=== PATIENT | female | born 1965 | race Caucasian/White ===

== ENCOUNTER 2017-05-29 06:21 | Day surgery (SDC) | payer OTHER ==
[2017-05-29] MEDS ORDERED: Lactated Ringers 1,000 ML IV SCH (07:00)
[2017-05-29] MEDS ORDERED: DIPRIVAN 200 MG/20 ML IV ONE (08:00)
[2017-05-29] MEDS ORDERED: Versed 2 MG/2 ML Injection IV ONE (08:00)
--- NOTE | 2017-05-29 08:56 | OP ---
SURGERY DATE/TIME: 05/29/2017 0800 PREOPERATIVE DIAGNOSES: 1) Persistent gastroesophageal reflux disease. 2) Screening colonoscopy. POSTOPERATIVE DIAGNOSES: 1) Normal EGD. 2) Sigmoid colon polyp. PROCEDURES: 1) EGD. 2) Colonoscopy. SURGEON: Trey Manuel M.D. ANESTHESIA: MAC by Durga Ruiz CRNA. ESTIMATED BLOOD LOSS: Minimal. SPECIMENS: One hot forceps polypectomy. DESCRIPTION OF PROCEDURE: After informed written consent was obtained, the patient was taken to the endoscopy suite. She underwent monitored anesthesia after a bite block was inserted. The endoscope and inserted into the posterior oropharynx and under direct visualization the esophagus was traversed. The esophageal mucosa was normal in appearance free of any lesions or defects. Upon entering the stomach there was a normal rugated gastric mucosa free of any lesions or defects. The area of the antrum was inspected and noted to be within normal limits. The pylorus was traversed and the duodenum was inspected and noted to have no mucosal abnormalities. Upon withdrawal again, all mucosal structures appeared to be within normal limits. The scope was removed and the scopes were switched. A digital rectal exam showed normal sphincter tone and no internal lesions. The scope was inserted in the rectum and sequentially the entire colonic mucosa was traversed. The level of cecum was reached and verified with direct visualization of the ileocecal valve. Upon withdrawal careful mucosal inspection revealed a single sessile polyp in the sigmoid colon which was removed with hot forceps in its entirety. The remainder of the exam is within normal limits. Retroflexion is performed prior to withdrawal and was within normal limits. The scope was removed and the patient was transferred to the recovery room in excellent condition.
[2017-05-29 09:28] VITALS: O2SAT 98
[2017-05-29 09:58] VITALS: BP 137/79; PULSE 67
== END 2017-05-29 09:45 | disposition home or self-care (01) ==
LOC: SDC 06:21
PROVIDERS: ATTEND Family Medicine
PROC: 0DJ08ZZ Inspection of Upper Intestinal Tract, Via Natural or Artificial Opening Endoscopic (ICD-10-PCS; principal; 2017-05-29)
PROC: 0DBN8ZX Excision of Sigmoid Colon, Via Natural or Artificial Opening Endoscopic, Diagnostic (ICD-10-PCS; 2017-05-29)
DX: K21.9 Gastro-esophageal reflux disease without esophagitis (principal); D12.5 Benign neoplasm of sigmoid colon; Z12.11 Encounter for screening for malignant neoplasm of colon
CPT/HCPCS: 00740; 00810; 36415; 88305; J2250; J2704

== ENCOUNTER 2023-08-20 06:47 | Day surgery (SDC) | payer OTHER ==
[~2023-08-20 06:47] MED LIST: Ak-Dilate OPHTHALMIC*** 1.065 ML, Cyclogyl 1% OPHTH SOL 1.065 ML, GATIFLOXACIN 0.5% OPH... OP ONE; BETADINE 5% OPHTHALMIC 30 ML OP ONE; Lactated Ringers 1,000 ML IV SCH; NON-FORMULARY ITEM OP ONE; TETRACAINE 0.5% STERI-UNIT SOL OP ONE; cefUROXime sodium 0.005 GM in Sodium Chloride Flush 30 ML*** 0.5 ML IJ ONE
[2023-08-20] MEDS ORDERED: Epinephrine Preservative Free 1 MG/ML IJ ONE (06:48)
[2023-08-20] MEDS ORDERED: Lactated Ringers 1,000 ML IV ONE (07:06)
[2023-08-20] MEDS ORDERED: ACETAZOLAMIDE 250 MG TABLET PO ONE (09:00)
[2023-08-20] MEDS ORDERED: Zofran 4 MG/2 ML VIAL IV PRN (09:00)
[2023-08-20] MEDS ORDERED: Versed 2 MG/2 ML Injection ONE (09:38)
[2023-08-20] MEDS ORDERED: SUBLIMAZE 100 MCG/2 ML ONE (09:38)
[2023-08-20] MEDS ORDERED: DIPRIVAN 200 MG/20 ML IV ONE ×2 (09:43→09:52)
[2023-08-20 10:11] VITALS: RESP 16
[2023-08-20 10:20] VITALS: BP 140/98; PULSE 69; O2SAT 97
[2023-08-20 10:33] VITALS: TEMP 97.4
== END 2023-08-20 10:32 | disposition home or self-care (01) ==
LOC: SDC 06:47
PROVIDERS: ATTEND Ophthalmology
DX: H25.811 Combined forms of age-related cataract, right eye (principal)
CPT/HCPCS: J0171; J2250; J2704; J3010; A9270-GY

== ENCOUNTER 2023-12-16 08:28 | Emergency (ER) | payer OTHER ==
--- NOTE | 2023-12-16 08:32 | ERPHSYRPT ---
- History of Present Illness Time Seen by Provider: 12/16/23 08:32 Source: patient Exam Limitations: no limitations Physician History: This is a right-handed 58-year-old white female patient of Dr. Nazario who arrived to the emergency department by walk-in. 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 There is obvious swelling and bruising present on the dorsal aspect of her right hand overlying the third knuckle. Patient is refusing pain medication at this time. Patient has a history of hypertension, gastroesophageal reflux disease, gout, alpha-1 antitrypsin deficiency, anxiety and sleep apnea. Occurred: just prior to arrival Method of Injury: direct blow Quality: constant, aching, throbbing Severity of Pain-Max: moderate Severity of Pain-Current: moderate Extremities Pain Location: hand: right, 3rd finger: right (Soft tissue swelling with ecchymosis overlying third knuckle) Modifying Factors: Improves With: movement Associated Symptoms: none Allergies/Adverse Reactions: No Known Drug Allergies Allergy (Verified 12/16/23 08:33) Home Medications: Allopurinol 100 mg [Zyloprim 100 mg] 100 mg PO DAILY 08/09/23 [History] Cholecalciferol (Vitamin D3) [Vitamin D] 1,000 unit PO DAILY 08/09/23 [History] Famotidine 20 mg PO DAILY 08/09/23 [History] lisinopriL [Lisinopril] 40 mg PO DAILY 08/09/23 [History] Escitalopram Oxalate [Lexapro] 10 mg PO DAILY 12/16/23 [History] Phentermine HCl [Adipex-P] 15 mg PO DAILY 12/16/23 [History] Travel Risk - International Travel Have you traveled outside of the country in past 3 weeks: No - Coronavirus Screening Are you exhibiting any of the following symptoms?: No Close contact with a COVID-19 positive Pt in past 14-21 Days: No - Review of Systems Constitutional: No Symptoms Eyes: No Symptoms Ears, Nose, & Throat: No Symptoms Respiratory: No Symptoms Cardiac: No Symptoms Abdominal/Gastrointestinal: No Symptoms Genitourinary Symptoms: No Symptoms Musculoskeletal: Injury (Right hand) Skin: No Symptoms Neurological: No Symptoms Psychological: No Symptoms Endocrine: No Symptoms Hematologic/Lymphatic: No Symptoms Immunological/Allergic: No Symptoms All Other Systems: Reviewed and Negative - Past Medical History Pertinent Past Medical History: Yes Neurological History: No Pertinent History ENT History: No Pertinent History Cardiac History: Hypertension Respiratory History: Sleep Apnea Endocrine Medical History: No Pertinent History Musculoskeletal History: No Pertinent History GI Medical History: GERD History: No Pertinent History Psycho-Social History: Anxiety, Panic Disorder Female Reproductive Disorders: No Pertinent History Other Medical History: Alpha 1 antitrypsin deficiency - Past Surgical History Past Surgical History: Yes Neuro Surgical History: No Pertinent History Cardiac: No Pertinent History Respiratory: No Pertinent History Gastrointestinal: Cholecystectomy Genitourinary: No Pertinent History Musculoskeletal: Other Female Surgical History: Section, Tubal Ligation Other Surgical History: carpal tunnel - Social History Smoking Status: Never smoker Exposure to second hand smoke: No Drug Use: none - Nursing Vital Signs Nursing Vital Signs: Initial Vital Signs Temperature 98.1 F 12/16/23 08:35 Pulse Rate 88 12/16/23 08:35 Respiratory Rate 16 12/16/23 08:35 Blood Pressure 143/98 12/16/23 08:35 O2 Sat by Pulse Oximetry 98 12/16/23 08:35 Pain Scale Pain Intensity 6 - Physical Exam General Appearance: no apparent distress, alert, anxiety Eyes, Ears, Nose, Throat Exam: normal ENT inspection, moist mucous membranes Neck Exam: normal inspection, non-tender, supple, full range of motion Cardiovascular/Respiratory Exam: chest non-tender, no respiratory distress Abdominal Exam: non-tender Back Exam: normal inspection, normal range of motion, No CVA tenderness, No vertebral tenderness Shoulder Exam: normal inspection, non-tender, no evidence of injury, normal ROM Elbow/Forearm Exam: normal inspection, non-tender, no evidence of injury, normal ROM Wrist Exam: normal inspection, non-tender, no evidence of injury, normal ROM Hand Exam: ecchymosis (Right hand), limited ROM (Right hand), soft tissue tenderness (Right hand), swelling (Right hand dorsal aspect third knuckle), No deformity Neuro/Tendon Exam: normal sensation, normal tendon functions, responds to pain, no evidence tendon injury Mental Status Exam: alert, oriented x 3, cooperative Skin Exam: warm, dry, ecchymosis (Skin overlying dorsal aspect third knuckle) SpO2 Interpretation: normal O2 Delivery: Room Air - Course Nursing assessment & vital signs reviewed: Yes Ordered Tests: Active Orders 24 hr Category Date Time Status HAND (MINIMUM 3 VIEWS) Stat Exams 12/16/23 08:32 Taken - Progress Progress: unchanged, pain not gone completely Progress Note: 12/16/23 08:59 This patient's medical issue is 1 of low complexity. Level complexity in the workup performed is based on review of the patient's past medical history, review the patient's medication list, review the patient's drug allergy list, history of present illness and physical findings on examination. Workup in this patient includes x-ray of right hand. I interpreted the x-ray of the right hand. There is no acute fracture or dislocation present. Counseled pt/family regarding: diagnosis, need for follow-up, rad results Medical Desision Making - Diagnostic Testing Diagnostic test were ordered, analyzed, and reviewed by me: Yes Radiological Interpretation: Interpreted by me - Risk of complications Minimal Risk: Minimal risk of morbidity - Departure Departure Disposition: Home Clinical Impression: Contusion of right hand, Abrasion of right hand Condition: Stable Critical Care Time: No Referrals: MARTHA NAZARIO MD [Primary Care Provider] - Follow up/PCP as directed Additional Instructions: Soak the right hand in an ice bath or apply ice pack to right hand 3 times a day for the next 48 hours. Keep the abrasion site clean with soap and water and may apply thin layer of antibiotic ointment daily. Use Tylenol and ibuprofen for pain control. Forms: Work/School Release Form
[2023-12-16 08:44] VITALS: RESP 16; TEMP 98.1
--- NOTE | 2023-12-16 09:01 | XRAY ---
Indication: Pain, swelling, and bruising. Comparison: None 3 view right hand demonstrates minimal degenerative changes all IP joints and mild radiocarpal joint space narrowing. No other bony, articular, or soft tissue abnormalities.
[2023-12-16 09:04] VITALS: BP 144/95; PULSE 85; O2SAT 95
== END 2023-12-16 09:08 | disposition home or self-care (01) ==
LOC: ED 08:28
DX: S60.221A Contusion of right hand, initial encounter (principal); S60.511A Abrasion of right hand, initial encounter; W22.09XA Striking against other stationary object, initial encounter; Y92.238 Other place in hospital as the place of occurrence of the external cause; Y99.0 Civilian activity done for income or pay; I10 Essential (primary) hypertension; Z79.899 Other long term (current) drug therapy
CPT/HCPCS: 73130; 99282

== ENCOUNTER 2025-04-07 05:57 | Day surgery (SDC) | payer OTHER ==
[2025-04-07 06:17] VITALS: RESP 18
[2025-04-07] MEDS ORDERED: Lactated Ringers 1,000 ML IV SCH (06:30)
[2025-04-07 06:38] LABS: ANION GAP 14.5 MEQ/L (5-15); Calcium 9.3 mg/dL (8.4-10.2); Creatinine 1 0.79 mg/dL (0.52-1.04); EST GLOMERULAR FILTRATION RATE 86.7 ML/MIN; Potassium 3.8 mmol/L (3.5-5.1)
[2025-04-07] MEDS ORDERED: propofoL IV ONE ×2 (07:30→07:47)
[2025-04-07] MEDS ORDERED: Versed 2 MG/2 ML Injection ONE (07:30)
[2025-04-07] MEDS ORDERED: Xylocaine-Mpf 2% 5 Ml Vial ONE (07:38)
[2025-04-07 08:29] VITALS: O2SAT 100
[2025-04-07 08:45] VITALS: BP 130/75; PULSE 86; TEMP 96.3
--- NOTE | 2025-04-07 20:49 | OP ---
SURGERY DATE/TIME: 04/07/2025 [id number] PREOPERATIVE DIAGNOSIS: Family history of colon cancer. POSTOPERATIVE DIAGNOSIS: Cecal polyp x2. PROCEDURE: Colonoscopy. SURGEON: Trey Manuel MD ANESTHESIA: MAC by Jermaine Forbes CRNA. ESTIMATED BLOOD LOSS: Minimal. SPECIMEN: Two hot forceps polypectomy from the cecum. DESCRIPTION OF PROCEDURE AND FINDINGS: After informed written consent was obtained, the patient was taken to the endoscopy suite. She was placed in left lateral decubitus position and anesthesia was titrated to the desired level of consciousness. Digital rectal exam showed normal sphincter tone and no internal lesions. The scope was inserted into the rectum and sequentially the entire colonic mucosa was traversed. The level of the cecum was reached and verified under direct visualization of the ileocecal valve. There were 2 small sessile polyps in the cecal region near to each other, both grasps with forceps, cauterized, removed in their entirety and sent in the same specimen container due to their close proximity. Areas were hemostatic following removal. The remainder of the exam showed no obvious mucosal lesions. There was some liquid stool scattered throughout but overall prep was noted to be fair. Prior to withdrawal, retroflexion showed no internal lesions. The scope was removed, and the patient was transferred to the recovery room in good condition. She was instructed to follow up in 1 week for pathology results.
== END 2025-04-07 08:48 | disposition home or self-care (01) ==
LOC: SDC 05:57
PROVIDERS: ATTEND Family Medicine
DX: D12.0 Benign neoplasm of cecum (principal); Z80.0 Family history of malignant neoplasm of digestive organs
CPT/HCPCS: 36415; 80048; 93005; J2250; J2704